=== PATIENT | male | born 1970 | race Caucasian/White ===

== ENCOUNTER 2017-07-09 14:09 | Emergency (ER) | payer OTHER ==
[2017-07-09] MEDS: HYDROCODONE/APAP (10/325) TAB PO (16:49)
[2017-07-09] MEDS: DIPHTH/TET/ACEL PERTUSS (ADULT) 0.5 ML VIAL IM* ×2 (16:50→16:54)
[2017-07-09] MEDS: LIDOCAINE 1% (MDV) 20 ML INJ SC (17:14)
[2017-07-09] MEDS: morphine 2 MG INJ IV (18:54)
[2017-07-09] MEDS: ONDANSETRON 4 MG INJ IV (18:54)
[2017-07-09] MEDS: CEFAZOLIN 1 GM/50 ML (PMX) 50 ML IVPB (18:54)
[2017-07-09] MEDS: HYDROmorphONE 1 MG/ML SYG IV (21:03)
== END 2017-07-09 22:11 | disposition home or self-care (01) ==
LOC: FTE 14:09
DX: S66.121A Laceration of flexor muscle, fascia and tendon of left index finger at wrist and hand level, initial encounter (principal); I10 Essential (primary) hypertension; W25.XXXA Contact with sharp glass, initial encounter; Y92.9 Unspecified place or not applicable
CPT/HCPCS: 29130; 73130-LT; 90715; 96374; 96375; 99284-25